=== PATIENT | female | born 1955 | race Caucasian/White ===

== ENCOUNTER 2017-09-23 07:18 | Emergency (ER) | END 2017-09-23 11:57 | disposition home or self-care (01) ==

== ENCOUNTER 2017-10-10 11:47 | Inpatient (IN) | END 2017-10-12 21:45 | disposition home or self-care (01) | DRG 691 ==

== ENCOUNTER 2017-12-27 10:24 | Day surgery (SDC) | END 2017-12-27 16:11 | disposition home or self-care (01) ==

== ENCOUNTER 2018-09-13 18:29 | Emergency (ER) | payer SELFPAY ==
[~2018-09-13] VITALS: Ht 170.2 cm; Wt 103.0 kg
[~2018-09-13 18:29] MED LIST: PARO-2 PO; PARO10TA57 PO
[2018-09-13 18:41] VITALS: BP 165/73; PULSE 81; RESP 20; Ht 170.2 cm; Wt 103.0 kg
== END 2018-09-13 22:50 | disposition left against medical advice (07) ==
LOC: E/R 18:29
DX: Z53.21 Procedure and treatment not carried out due to patient leaving prior to being seen by health care provider (principal)
CPT/HCPCS: 93005